=== PATIENT | female | born 1960 | race Caucasian/White ===

== ENCOUNTER 2018-02-02 15:54 | Observation (INO) | payer SELFPAY ==
[2018-02-02] MEDS ORDERED: NS 1,000 ML IV ONE ×2 (16:02→17:37)
--- NOTE | 2018-02-02 16:15 | EDPHY ---
HPI/HX/ROS/PE/MDM Narrative: CHIEF COMPLAINT: Abdominal pain HPI: The patient is a 57 y/o female arriving with her complaining of constant abdominal pain that began 2-3 days ago. She initially attributed her pain to "a little viral thing," but it continued to progress and localize to her RLQ. She describes it as "deep, dull" in her RLQ and sometimes "grabby" in a band across her RUQ and epigastrium. Last night she was unable to sleep due to the pain. Her pain is not obviously aggravated by eating and she's experienced loss of appetite today. Her pain is tolerable when lying still, but aggravated by movement, bumps while riding in the car, and palpitation in other areas of her abdomen causes RLQ pain. She notes she has experienced slightly abnormal bowel movements for the last 4 months since starting the keto diet and questions if she could be constipated. She had hemorrhoids a few weeks ago, but denies current bloody or tarry stools. Prior history of a hysterectomy due to fibroids. REVIEW OF SYSTEMS: A comprehensive 10 system review of systems is otherwise negative aside from elements mentioned in the history of present illness. PMH: Hysterectomy due to large fibroids and bleeding (ovaries still present); left knee surgery; hypercholesterolemia; hypertension SOCIAL HISTORY: at bedside. Lives in [place]. Employed. PHYSICAL EXAM: General:Patient is alert, in no acute distress. ENT:Eyes are normal to inspection. ENT inspection normal. Neck: Normal inspection. Full range of motion. Respiratory:No respiratory distress. Breath sounds normal bilaterally. Cardiovascular: Regular rate and rhythm. Strong peripheral pulses. Normal cap refill. Abdomen: The abdomen has McBurney's point tenderness, mild RUQ tenderness, positive Rovsing's sign. Back: Normal to inspection. No tenderness to palpation. Skin: Normal color. No rash. Warm and dry. Extremities: Normal appearance. Full range of motion. Neuro: Oriented x3. Normal motor function. Normal sensory function. ED Course: This is a 57 y/o female with a history of hysterectomy who presents with a two- three-day history of constant and progressive RLQ pain associated with loss of appetite and aggravated by movement and palpation. She has McBurney's point tenderness with a positive Rovsing's sign. Presentation is suspicious for appendicitis. Plan for IV, labs, abdominal CT, and symptom management. Patient declines pain medication at this time. 1L IV NS ordered. CT shows acute appendicitis with appendicolith. Surgery paged. [id number]: Consulted with Dr. Ramirez, surgeon. He will assess patient in the ED. He requests 1gm IV Rocephin, 500mg IV Flagyl, and additional saline at 100mL/hr. - Data Points Imaging: Discussed imaging studies w/ machine scallop cutter Radiologist, I viewed and interpreted images myself Laboratory Results: Laboratory Results 02/02/18 16:09 02/02/18 16:09 02/02/18 02/02/18 16:09 16:09 WBC 11.84 10^3/uL H 10^3/uL (3.80-9.50) RBC 5.23 10^6/uL 10^6/uL (4.18-5.33) Hgb 15.6 g/dL g/dL (12.6-16.3) Hct 46.9 % % (38.0-47.0) MCV 89.7 fL fL (81.5-99.8) MCH 29.8 pg pg (27.9-34.1) MCHC 33.3 g/dL g/dL (32.4-36.7) RDW 14.6 % % (11.5-15.2) Plt Count 374 10^3/uL 10^3/uL (150-400) MPV 9.7 fL fL (8.7-11.7) Neut % (Auto) 78.0 % H % (39.3-74.2) Lymph % (Auto) 15.0 % % (15.0-45.0) [place] % (Auto) 6.2 % % (4.5-13.0) Eos % (Auto) 0.2 % L % (0.6-7.6) Baso % (Auto) 0.2 % L % (0.3-1.7) Nucleat RBC Rel Count 0.0 % % (0.0-0.2) Absolute Neuts (auto) 9.24 10^3/uL H 10^3/uL (1.70-6.50) Absolute Lymphs (auto) 1.78 10^3/uL 10^3/uL (1.00-3.00) Absolute Monos (auto) 0.73 10^3/uL 10^3/uL (0.30-0.80) Absolute Eos (auto) 0.02 10^3/uL L 10^3/uL (0.03-0.40) Absolute Basos (auto) 0.02 10^3/uL 10^3/uL (0.02-0.10) Absolute Nucleated RBC 0.00 10^3/uL 10^3/uL (0-0.01) Immature Gran % 0.4 % % (0.0-1.1) Immature Gran # 0.05 10^3/uL 10^3/uL (0.00-0.10) Sodium 139 mEq/L mEq/L (135-145) Potassium 3.9 mEq/L mEq/L (3.3-5.0) Chloride 100 mEq/L mEq/L (97-110) Carbon Dioxide 26 mEq/l mEq/l (22-31) Anion Gap 13 mEq/L mEq/L (6-14) BUN 12 mg/dL mg/dL (7-23) Creatinine 0.7 mg/dL mg/dL (0.6-1.0) Estimated GFR > 60 Glucose 99 mg/dL mg/dL (70-100) Calcium 10.3 mg/dL mg/dL (8.5-10.4) Total Bilirubin 0.8 mg/dL mg/dL (0.1-1.4) Conjugated Bilirubin 0.2 mg/dL mg/dL (0.0-0.5) Unconjugated Bilirubin 0.6 mg/dL mg/dL (0.0-1.1) AST 19 IU/L IU/L (14-46) ALT 36 IU/L IU/L (9-52) Alkaline Phosphatase 66 IU/L IU/L (38-126) Total Protein 7.7 g/dL g/dL (6.3-8.2) Albumin 4.6 g/dL g/dL (3.5-5.0) Lipase 67 IU/L IU/L (23-300) Medications Given: Discontinued Medications Sodium Chloride (Ns) 1,000 mls @ 0 mls/hr IV EDNOW ONE; Wide Open PRN Reason: Protocol Stop: 02/02/18 16:03 Last Admin: 02/02/18 16:24 Dose: 1,000 mls General Time Seen by Provider: 02/02/18 16:02 Initial Vital Signs: Initial Vital Signs Temperature (C) 36.7 C 02/02/18 15:56 Heart Rate 92 02/02/18 15:56 Respiratory Rate 16 02/02/18 15:56 Blood Pressure 172/101 H 02/02/18 15:56 O2 Sat (%) 94 02/02/18 15:56 O2 Delivery Mode Room Air Allergies/Adverse Reactions: No Known Allergies Allergy (Verified 02/02/18 15:56) Home Medications: Medication Instructions Recorded NK [No Known Home Meds] 02/02/18 Departure - Departure Disposition: [facility] Inpatient Acute Clinical Impression: Acute appendicitis Qualifiers: Acute appendicitis type: with localized peritonitis Appendicitis gangrene presence: unspecified whether gangrene present Appendicitis perforation presence : without perforation Appendicitis abscess presence: without abscess Qualified Code(s): K35.30 - Acute appendicitis with localized peritonitis, without perforation or gangrene Condition: Fair Referrals: NONE *PRIMARY CARE P,. [Primary Care Provider] - As per Instructions Report Scribed for: Carlos Jacques Report Scribed by: Munira Brantley Date of Report: 02/02/18 Time of Report: 16:04 Physician Review and Approval Statement: Portions of this note were transcribed by an ED scribe. I personally performed the history, physical exam, and medical decision making; and confirm the accuracy of the information in the transcribed note.
[2018-02-02 16:21] LABS: PLATELET COUNT 374 10^3/uL (150-400)
[2018-02-02] MEDS ORDERED: IOPAMIDOL (ISOVUE-300) 100 ML BTL ONE (16:43)
[2018-02-02] MEDS ORDERED: ACETAMINOPHEN 500 MG TAB PO ONE (18:35)
[2018-02-02] MEDS ORDERED: ONDANSETRON 4 MG/2 ML VIAL IVP PRN (18:41)
[2018-02-02] MEDS ORDERED: HYDROmorphONE/DILAUDID 1 MG/ML INJ IVP PRN (18:41)
[2018-02-02] MEDS ORDERED: KETOROLAC 15 MG/1 ML SDV ONE (18:48)
[2018-02-02] MEDS: KETOROLAC 15 MG/1 ML SDV IVP SCH (18:50)
[2018-02-02] MEDS ORDERED: LR 1,000 ML IV SCH (19:00)
--- NOTE | 2018-02-02 20:26 | GHP ---
DATE OF ADMISSION: 02/02/2018 ADMITTING DIAGNOSES: Acute appendicitis with fecalith (x3). 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 In the last several weeks, she has felt as if she may have had a low-grade viral illness as she had "a lower energy." 48 hours ago, she complained of being uncomfortable in the evening and had an upset stomach. She woke up the next morning with pain, but was not awakened by the pain. She ate that day. The pain became worse over the course of the day. She complained of bloating that night. She did not sleep well. She moved her bowels this morning, and she noticed the pain was slightly worse when she moved her bowels. The pain has continued. She finally decided it was time to come to the hospital for evaluation. She has not had a recent viral illness per se. She has not had diarrhea. There is no history of travel or antibiotic use. There is no history of inflammatory bowel disease. She has had a partial hysterectomy. She had her tonsils and adenoids removed age 7. She has had a left knee meniscectomy. SOCIAL HISTORY: She does not smoke. She drinks 4-5 drinks per week. MEDICATIONS: She occasionally uses an Advil for pain as a medication. ALLERGY TO MEDICATION: She has no known drug allergies. PAST MEDICAL HISTORY: There is no history of rheumatic fever, tuberculosis, hepatitis, or transfusions. REVIEW OF SYSTEMS: She wears reading glasses. She has had a history recently of an ocular migraine. She had migraines in the remote past. She currently is going through menopause. She has a right upper central incisor which is and slightly loose. She has occasional stress incontinence. Note is made she has had postoperative nausea and vomiting with her hysterectomy. There are no limits on her activities and no history of steroid use. FAMILY HISTORY: Mother developed breast cancer and in her early 60s. PHYSICAL EXAMINATION: VITAL SIGNS: Her initial blood pressure was 178/90 at 109. Temperature was 36.7. GENERAL APPEARANCE: The patient is awake and alert and in mild distress. She has not accepted pain medications up to this point. NEUROLOGIC: She is oriented to person, place, time. She has no focal lateralizing neurologic findings. HEENT: Skull is normocephalic and atraumatic. NECK: Nontender to palpation. LUNGS: Clear to auscultation. LYMPHATIC: There is no certain lymphatic. There is no cervical, supraclavicular , axillary, or inguinal lymphadenopathy. BACK: Normal to palpation. . CARDIAC: S1, S2 normal with normal split of S2 without murmurs, rubs, or gallops. ABDOMEN: Mildly distended. She is tender with cough over McBurney point on the level of 2/10. Psoas and obturator signs are negative. To palpation, her left upper quadrant is 1/10, left mid abdomen is 2/10, left lower quadrant is 1/ 10, epigastrium is 1/10, periumbilical region is 1/10, suprapubic region is 1/10 , right upper quadrant is 1/10, right mid abdomen is 3/10, right lower quadrant is 4/10. Her white blood cell count is 11.8, with 76% neutrophils. Her platelets are 374. Lipase is 67. Sodium 139. Creatinine is 0.7. BUN is 12. Potassium is 3.9. CT shows a distended appendix with a fecalith (x3) with appendiceal obstruction. She will be given pain medication. She has received 1 g of Rocephin and 500 mg of Flagyl IV. Her CAT scan does show a dilated appendix with 3 fecaliths, one of which is plugging the orifice. PLAN: Operative intervention this evening. /[id number]/MODL MTDD
[2018-02-02] MEDS ORDERED: LR 1,000 ML IV ONE (20:37)
[2018-02-03] MEDS ORDERED: MIDAZOLAM 2 MG/2 ML VIAL ONE (00:15)
[2018-02-03] MEDS ORDERED: fentaNYL 100 MCG/2 ML INJ ONE ×2 (00:16)
[2018-02-03] MEDS ORDERED: PROPOFOL 200 MG/20 ML VIAL ONE (00:16)
[2018-02-03] MEDS ORDERED: ROCURONIUM 50 MG/5 ML VIAL ONE (00:18)
[2018-02-03] MEDS ORDERED: ONDANSETRON 4 MG/2 ML VIAL ONE (00:19)
[2018-02-03] MEDS ORDERED: SUGAMMADEX SODIUM 200 MG/2 ML VIAL IVP ONE (00:19)
[2018-02-03] MEDS ORDERED: DEXAMETHASONE 4 MG/ML VIAL ONE (00:19)
[2018-02-03] MEDS ORDERED: KETOROLAC 30 MG/1 ML SDV ONE (00:20)
[2018-02-03] MEDS ORDERED: LIDOCAINE 2% 5 ML SDV ONE (00:22)
[2018-02-03] MEDS ORDERED: HEPARIN 5,000 UNIT/0.5 ML INJ ONE (00:35)
[2018-02-03] MEDS ORDERED: ceFAZolin 1 GM/5 ML SYR ONE (00:35)
--- NOTE | 2018-02-03 00:45 | POSTANESTH ---
Post Anesthetic Evaluation Cardiovascular Status: Normal, Stable Respiratory Status: Normal, Stable Level of Consciousness/Mental Status: Can Participate in Eval, Alert and Oriented Pain Control: Adequate, Prn Tx Ordered Nausea/Vomiting Control: Adequate, Prn Tx Ordered Complications Possibly Related to Anesthesia: None Noted
--- NOTE | 2018-02-03 00:45 | PDANEPAE ---
ANE History of Present Illness bernarda navi ESPERANZA Past Medical History - Cardiovascular History Hx Hypertension: No Hx Arrhythmias: No Hx Chest Pain: No Hx Coronary Artery / Peripheral Vascular Disease: No Hx CHF / Valvular Disease: No Hx Palpitations: No - Pulmonary History Hx COPD: No Hx Asthma/Reactive Airway Disease: No Hx Recent Upper Respiratory Infection: No Hx Oxygen in Use at Home: No Hx Sleep Apnea: No Sleep Apnea Screening Result - Last Documented: Negative - Endocrine History Hx Diabetes: No Hypothyroid: No Hyperthyroid: No Obesity: no ANE Review of Systems Review of systems is: negative Review of Systems: - Exercise capacity Exercise capacity: >=4 METS ANE Patient History - Allergies Allergies/Adverse Reactions: No Known Allergies Allergy (Verified 02/02/18 18:54) - Home Medications Home medications: home medication list seen and reviewed Home Medications: Cholecalciferol Vit D3 [Vitamin D3 (*)] 5,000 units PO DAILY 02/02/18 [Last Taken 02/01/18] [place]-3S/Dha/Epa/Fish Oil [Fish Oil 1,200 mg Softgel] 2 each PO DAILY 02/02/18 [ Last Taken 02/01/18] - NPO status NPO Since - Liquids (Date): 02/02/18 NPO Since - Liquids (Time): 00:00 NPO Since - Solids (Date): 02/02/18 NPO Since - Solids (Time): 00:00 - Anes Hx Anes Hx: post operative nausea - Smoking Hx Smoking Status: Never smoked ANE Labs/Vital Signs - Labs Result Diagrams: 02/02/18 16:09 02/02/18 16:09 - Vital Signs Blood Pressure: 166/110 Heart Rate: 83 Respiratory Rate: 16 O2 Sat (%): 95 Height: 154.94 cm Weight: 70.307 kg ANE Physical Exam - Airway Neck exam: FROM Mallampati Score: Class 1 Mouth exam: normal dental/mouth exam - Pulmonary Pulmonary: no respiratory distress - Cardiovascular Cardiovascular: regular rate and rhythym - ASA Status ASA Status: II, E ANE Anesthesia Plan Anesthesia Plan: general endotracheal anesthesia Urgent/Emergent Case: Esperanzanallely hakeem completed preop but documented later for safe timely pt care
[2018-02-03] MEDS ORDERED: LR 500 ML IV PRN (00:56)
[2018-02-03] MEDS ORDERED: ONDANSETRON 4 MG/2 ML VIAL IVP PRN (00:56)
[2018-02-03] MEDS ORDERED: METOCLOPRAMIDE 10 MG/2 ML VIAL IVP PRN (00:56)
[2018-02-03] MEDS ORDERED: NALOXONE HCL 0.4 MG/ML INJ IVP PRN (00:56)
[2018-02-03] MEDS ORDERED: PROMETHAZINE HCL 25 MG/ML INJ IVP PRN (00:56)
[2018-02-03] MEDS ORDERED: oxyCODONE IR 5 MG TAB PO PRN (00:56)
[2018-02-03] MEDS ORDERED: ACETAMINOPHEN 500 MG TAB PO PRN (00:56)
[2018-02-03] MEDS ORDERED: ALBUTEROL 3 ML DEYVIAL IH PRN (00:56)
[2018-02-03] MEDS ORDERED: HYDROmorphONE/DILAUDID 2 MG/ML INJ IVP PRN (00:56)
[2018-02-03] MEDS ORDERED: HYDROCODONE/APAP 5/325 TAB PO PRN (00:56)
[2018-02-03] MEDS ORDERED: fentaNYL 100 MCG/2 ML INJ IVP PRN (00:56)
--- NOTE | 2018-02-03 01:48 | POSTOPPROG ---
Post Op Note Date of Operation: 02/03/18 Surgeon: Royal Ramirez Anesthesia: GET(General Endotracheal) Pre-op Diagnosis: acute appendicitis with fecaliths (3) Post-op Diagnosis: acute appendicitis with fecaliths (3) Indication: acute appendicitis with fecaliths (3) Procedure: Laparoscopic appendectomy Findings: acute appendicitis with fecaliths (3) Inf/Abcess present in the surg proc area at time of surgery?: No EBL: Minimal Total fluids administered: 600 Complications: none Specimen(s): appendix
[2018-02-03] MEDS ORDERED: BACITRACIN 50,000 UNITS/10 ML SYR IRR ONE (02:12)
[2018-02-03] MEDS: ACETAMINOPHEN 500 MG TAB PO SCH ×3 (03:09→11:02)
[2018-02-03] MEDS: KETOROLAC 15 MG/1 ML SDV IVP SCH ×2 (07:21→13:28)
--- NOTE | 2018-02-03 11:55 | GOP ---
DATE OF OPERATION: 02/03/2018 SURGEON: Royal Ramirez MD ANESTHESIA: General endotracheal. ANESTHESIOLOGIST: Pop Mcclain MD. PREOPERATIVE DIAGNOSIS: Acute appendicitis with appendicolith (x3). POSTOPERATIVE DIAGNOSIS: Acute appendicitis with appendicolith (x3). PROCEDURE PERFORMED: Laparoscopic appendectomy. FINDINGS: Acute appendicitis with appendicolith (x3). INDICATIONS: Acute appendicitis with appendicolith (x3). DESCRIPTION OF PROCEDURE: The patient was placed on the operating table in supine position. After in duction of adequate general endotracheal anesthesia, the abdomen was carefully prepped and draped. A curvilinear incision was planned in the umbilicus. The skin was incised and dissection was continue d down to the anterior rectus sheath using a spreading technique. The fascia was elevated with Allis clamps. It was incised in the midline. A pursestring of #0 PDS was placed. The peritoneum was entered. An 11-12 mm disposable Josesito trocar was used. The abdominal insufflation was carried out to 15 mmHg. An oblique left lower quadrant 5 mm incision was made through her prior port site incision. A second 5 mm port site was placed transversely in the suprapubic region. In both cases, the ports were placed under direct vision. There is no purulent fluid seen with brief evaluation of the abdomen. The appendix was adherent to the peritoneal sidewall. It was carefully freed using the harmonic scalp el. Once the sidewall had been from the appendix to the cecum to allow complete circumferen tial visualization of the cecum at the appendiceal cecal junction, a 35 mm powered Endo-GRAZYNA stapler w as used to transect the appendix with a cuff of cecum. The specimen was placed in EndoCatch bag and d elivered via the umbilical port site. Pneumoperitoneum was re-established. The small-bowel was run for a distance of 3 feet. I did not dete ct any mesenteric adenitis or Meckel's diverticulum. Irrigation with heparin and Ancef-containing irrigant was carried out. Photographic documentation of both ovaries was done. Ports were removed under direct vision. Inverted simple suture of 0 PDS was placed in the midline of the infraumbilical fascial defect. It was tied first, then the pursestring was tied. The umbilical po rt site was now irrigated with heparin-containing and Ancef-containing irrigant. Hemostasis was check ed and found to be excellent. All 3 incisions were closed with inverted simple sutures of #4-0 Vicryl. Mastisol and Steri-Strips we re placed. Band-Aids were positioned. The patient was transferred to Recovery in stable and satisfactory condition. /[id number]/MODL
[2018-02-03 12:34] VITALS: BP 107/69
--- NOTE | 2018-02-03 15:03 | SOAPPROG ---
SOAP Progress Note Assessment/Plan: POD#1 02/03/18 15:00 Assessment: Doing well, eating well Plan: discharge Subjective: no complaints Objective: Vital Signs Temp Pulse Resp BP Pulse Ox 36.5 C 64 17 107/69 96 02/03/18 12:00 02/03/18 12:00 02/03/18 12:00 02/03/18 12:00 02/03/18 12:00 02/02/18 02/03/18 02/04/18 05:59 05:59 05:59 Intake Total 650 Output Total 655 Balance -5 - Time Spent With Patient Time Spent With Patient: 15 Physical Exam - Physical Exam General Appearance: WD/WN, alert, no apparent distress Respiratory: chest non-tender, lungs clear, normal breath sounds Cardiac/Chest: normal peripheral pulses, regular rate, rhythm, edema Abdomen: normal bowel sounds, non-tender, soft, other (incisions clean and dry) Pelvic Exam: deferred Rectal: deferred Back: Normal inspection Skin: normal color, warm/dry Neuro/Psych: no motor/sensory deficits, alert, normal mood/affect, oriented x 3 ICD10 Worksheet Patient Problems: Problems Problem Status Onset Acute appendicitis Acute
--- NOTE | 2018-02-03 17:17 | GDS ---
PROCEDURE: Laparoscopic appendectomy for acute unruptured appendicitis with fecalith (x3). CONDITION ON DISCHARGE: Improved/good. DISPOSITION: Home. DIET: There are no restrictions on the diet or the dietary texture. I have suggested that she avoid constipating foods such as bananas, rice, applesauce, and cheese. MEDICATIONS: She will continue her home medications which include cholecalciferol, vitamin D3 1000 units daily. She will continue her omega-3 DHEA EPA-fish oil capsules. She will use Tylenol 1000 mg every 8 hours and Toradol 10 mg every 6 hours for 5 days. She will use Dilaudid 2 mg as needed for severe pain. RESTRICTIONS AT DISCHARGE: She is to for 3 weeks shower only, keep her Steri- Strips in place, and lift less than 10 pounds. She is to take a multivitamin with 100% of the OYSTER PREPARER of zinc, copper, and C daily. She is to watch for signs of infection. Those signs would be: 1. Superficial - redness, warmth, swelling, and tenderness. 2. Deep- loss of appetite, fevers, chills, abdominal pain, fatigue. FOLLOWUP: She will follow up with Dr. Barboza's office in [address] Barboza, Dr. Steward, or Dr. Higgins. HOSPITAL COURSE: Her hospital course was unremarkable. She is doing well at discharge. /[id number]/MODL MTDD
== END 2018-02-03 15:20 | disposition home or self-care (01) ==
LOC: FOB 20:30
PROVIDERS: ADMIT Surgery; ATTEND Surgery
PROC: 0DTJ4ZZ Resection of Appendix, Percutaneous Endoscopic Approach (ICD-10-PCS; principal; 2018-02-02)
DX: K35.80 Unspecified acute appendicitis (principal); E86.9 Volume depletion, unspecified; I10 Essential (primary) hypertension; E78.00 Pure hypercholesterolemia, unspecified; Z80.3 Family history of malignant neoplasm of breast
CPT/HCPCS: 96365; G0378; J0696; J1100; J1644; J1885; J2250; J2405; J2704; J3010; Q9967

== ENCOUNTER 2018-02-12 22:07 | Emergency (ER) | payer SELFPAY ==
--- NOTE | 2018-02-12 22:35 | EDPHY ---
H & P Stated Complaint: "NOT PASSING GAS, INTESTINAL PAIN SINCE AM/POST APPY 10 DAYS Time Seen by Provider: 02/12/18 22:29 HPI/ROS: CHIEF COMPLAINT: Abdominal pain post appendectomy HISTORY OF PRESENT ILLNESS: 57-year-old female postop day 9 post laparoscopic appendectomy by Dr. Royal Ramirez arrives via private vehicle complaining of left-sided abdominal pain, abdominal distension, unable to pass gas. She last had a bowel movement this morning. Notes that throughout the day she is only able to pass gas or stool. She has not been taking opiates. REVIEW OF SYSTEMS: 10 systems reviewed and negative with the exception of the elements mentioned in the history of present illness PAST MEDICAL & SURGICAL HISTORY: Postop day [address] Royal Ramirez SOCIAL HISTORY: Nonsmoker. . PHYSICAL EXAM (Prior to examination, patient consented to physical exam, hands were washed and my usual and customary physical exam procedures followed) 1) GENERAL: Well-developed, well-nourished, alert and oriented. Appears to be in no acute distress. 2) HEAD: Normocephalic, atraumatic 3) HEENT: Pupils equal, round, reactive to light bilaterally. Sclera anicteric. Nasopharynx, oropharynx, clear, no lesions. Moist mucous membranes. 4) NECK: Full range of motion, no meningeal signs. 5) LUNGS: Clear auscultation bilaterally, no wheezes, no rhonchi, no retractions. 6) HEART: Regular rate and rhythm, no murmur, no heave, no gallop. 7) ABDOMEN: No guarding, tender to palpation left lower quadrant. Surgical incisions granulating appropriately with no dehiscence, no signs of infection. Steri-Strips in place. Negative peritoneal sign, 8) MUSCULOSKELETAL: Moving all extremities, no focal areas of tenderness, no obvious trauma. No peripheral edema or discoloration. 9) BACK: No CVA tenderness, no midline vertebral tenderness, no fluctuance, no step-off, no obvious trauma, no visual or palpable abnormality. 10) SKIN: No rash, no petechiae. 11) Psychiatric: Patient is oriented X 3, there is no agitation. DIFFERENTIAL DIAGNOSIS: In no particular order including but not limited to postoperative ileus, bowel obstruction, postoperative infection, abscess - Personal History Current Tetanus Diphtheria and Acellular Pertussis (TDAP): No - Medical/Surgical History Hx Asthma: No Hx Chronic Respiratory Disease: No Hx Diabetes: No Hx Cardiac Disease: No Hx Renal Disease: No Hx Cirrhosis: No Hx Alcoholism: No Hx HIV/AIDS: No Hx Splenectomy or Spleen Trauma: No Other PMH: 2013 uterus removed, APPY 01/2018, MINISCUS SX 2017, TONSILECTOMY, ADENOIDECTOMY - Social History Smoking Status: Never smoked Constitutional: Initial Vital Signs Temperature (C) 37.7 C 02/12/18 22:13 Heart Rate 101 H 02/12/18 22:13 Respiratory Rate 16 02/12/18 22:13 Blood Pressure 147/113 H 02/12/18 22:13 O2 Sat (%) 95 02/12/18 22:13 O2 Delivery Mode Room Air Allergies/Adverse Reactions: No Known Allergies Allergy (Verified 02/02/18 18:54) Home Medications: Medication Instructions Recorded Amoxicillin/Clavulanate Pot 875 mg PO TID 7 Days tab 02/12/18 [Augmentin 875 MG TAB (*)] Medical Decision Making ED Course/Re-evaluation: 11:40 p.m.: CT abdomen pelvis interpreted by radiologist, with images reviewed myself, positive for diverticulitis of the descending colon without abscess or perforation. 11:47 p.m.: Consultation Dr. Mayco Collazo as the patient is postop day 9. He recommended outpatient antibiotic treatment for diverticulitis. Will initiate antibiotic therapy in the ER. Will plan on discharge. Recommend close follow up with Dr. Colten Barboza whom she has seen previously. No evidence of bowel obstruction. Usual and customary abdominal precautions instructions. Care of patient under supervision of secondary supervising physician Dr Gonzalez who independently evaluated patientwith whom I discussed case. I also recommended the patient that she follow up with Gastroenterology for colonoscopy. Given this referral information to Dr. Persaud - Data Points Laboratory Results: Laboratory Results 02/12/18 22:43 02/12/18 22:43 Medications Given: Discontinued Medications Amoxicillin/Clavulanate Potassium (Augmentin 875mg) 875 mg PO EDNOW ONE PRN Reason: Protocol Stop: 02/13/18 00:09 Last Admin: 02/13/18 00:14 Dose: 875 mg Point of Care Test Results: Chemistry 02/12/18 22:52 POC Sodium 138 mEq/L mEq/L (135-145) POC Potassium 3.8 mEq/L mEq/L (3.3-5.0) POC Chloride 101 mEq/L mEq/L (97-110) POC BUN 11 mg/dL mg/dL (7-23) POC Creatinine 0.8 mg/dL mg/dL (0.6-1.0) POC Glucose 108 mg/dL H mg/dL (70-100) ISTAT H&H 02/12/18 22:52 POC Hgb 16.0 gm/dL gm/dL (12.6-16.3) POC Hct 47 % % (38-47) Departure - Departure Disposition: Home, Routine, Self-Care Clinical Impression: Diverticulitis large intestine Condition: Good Instructions: Diverticulitis (ED), Diverticulitis Diet (ED) Additional Instructions: Seek immediate medical attention if you develop new or worsening symptoms, if you develop fevers, chills, inability to tolerate oral intake or any other symptoms that concerns you. Referrals: Colten Barboza MD [Medical Doctor] - 1 day without fail Leonel Persaud MD [Medical Doctor] - 5-7 days, call for appt. (Dr. Leonel Persaud is a wax ball molder) Prescriptions: Amoxicillin/Clavulanate Pot [Augmentin 875 MG TAB (*)] 875 mg PO TID 7 Days tab
[2018-02-12 22:55] LABS: PLATELET COUNT 432 10^3/uL (150-400)
[2018-02-12] MEDS ORDERED: IOPAMIDOL (ISOVUE-300) 100 ML BTL ONE (23:01)
[2018-02-13] MEDS ORDERED: AMOXICILLIN/CLAVULANATE POT 875/125 MG TAB PO ONE ×2 (00:07→00:08)
[2018-02-13 00:20] VITALS: BP 130/78
== END 2018-02-13 00:20 | disposition home or self-care (01) ==
DX: K57.32 Diverticulitis of large intestine without perforation or abscess without bleeding (principal); Z90.49 Acquired absence of other specified parts of digestive tract; Z90.710 Acquired absence of both cervix and uterus
CPT/HCPCS: 82435-PO; 82565-PO; 82947-PO; 84132-PO; 84295-PO; 84520-PO; 85014-PO; Q9967